=== PATIENT | female | born 1985 | race Caucasian/White ===

== ENCOUNTER 2016-08-14 08:48 | Emergency (ER) | payer OTHER ==
[~2016-08-14] VITALS: Ht 160 cm; Wt 93.5 kg
[2016-08-14 08:50] VITALS: Ht 160 cm; Wt 93.5 kg
[2016-08-14] MEDS ORDERED: IBUP-1542 PO (09:29)
[2016-08-14] MEDS ORDERED: IBUPROFEN 800 MG TAB PO ONE (09:30)
[2016-08-14] MEDS ORDERED: ACET500C5 PO (09:30)
[2016-08-14] MEDS ORDERED: CETI10CA PO (09:31)
--- NOTE | 2016-08-14 09:35 | ERD ---
ER Documentation Chief Complaint Date/Time DATE: 08/14/16 TIME: 09:33 Chief Complaint sore throat x 4 days HPI This is a 31-year-old female who presents the emergency department today for sore throat for the past 4 days. Patient states she has a small cough in her throat hurts when she coughs. She she took Tylenol yesterday. Denies any fevers or chills. Denies any sick contacts. ROS All systems reviewed and are negative except as per history of present illness. Medications Home Meds Active Scripts Cetirizine Hcl* (Zyrtec*) 10 Mg Capsule, 10 MG PO DAILY, #10 TAB.CHEW Prov:GERALD SCHAFER PA-C 08/14/16 Acetaminophen* (Tylophen*) 500 Mg Capsule, 1 CAP PO Q6H Y for PAIN AND OR ELEVATED TEMP, #30 CAP Prov:GERALD SCHAFER PA-C 08/14/16 Ibuprofen* (Motrin*) 600 Mg Tab, 600 MG PO Q6, #30 TAB Prov:GERALD SCHAFER PA-C 08/14/16 Allergies Allergies: Coded Allergies: No Known Allergy (Unverified , 08/14/16) PMhx/Soc Medical and Surgical Hx: pt denies Medical Hx, pt denies Surgical Hx Hx Alcohol Use: No Hx Substance Use: No Hx Tobacco Use: No Smoking Status: Never smoker Physical Exam Vitals Vital Signs Date Time Temp Pulse Resp B/P Pulse Ox O2 Delivery O2 Flow Rate FiO2 08/14/16 08:50 98.4 100 18 127/81 100 Physical Exam Const: No acute distress Head: Atraumatic Eyes: Normal Conjunctiva ENT: Ears TMs normal. Nose no drainage. Throat no erythema no exudate. Mild drainage posterior pharynx. Nontender cervical lymphadenopathy Neck: Full range of motion..~ No meningismus. Resp: Clear to auscultation bilaterally Cardio: Regular rate and rhythm, no murmurs Abd: Soft, non tender, non distended. Normal bowel sounds Skin: No petechiae or rashes Neur: Awake and alert Psych: Normal Mood and Affect Results 24 hrs Current Medications Medications (Trade) Dose Ordered Sig/Austen Route PRN Reason Start Time Stop Time Status Last Admin Dose Admin Ibuprofen (Motrin) 800 mg ONCE ONCE PO 2/16/17 09:30 08/14/16 09:31 DC 08/14/16 09:19 Procedures/MDM This 31-year-old female who presents the emergency department today with a sore throat for the past 4 days. On physical exam patient has no tonsillar exudate. She is afebrile. Her oxygen saturation is 100%. She has a cough. Patient does not meet [facility] criteria to treat for possible or presumed strep pharyngitis at this time. Low suspicion for strep pharyngitis, peritonsillar abscess, retropharyngeal abscess, otitis media, PNA, sinusitis, abscess, meningitis, sepsis, or other acute infectious bacterial process. Vision symptoms at this time consistent with sore throat. She was given Motrin here in the emergency department. We will give her a prescription for Tylenol and Motrin for home as well as Zyrtec to treat possible allergic rhinitis that may be causing some of her sore throat. At this time the patient is stable for discharge and outpatient management. They should follow up with their PCP in the next 1-2. They may return to the emergency department sooner if symptoms persist or worsen. Patient understood and agreed with the plan. Departure Diagnosis: Primary Impression: Sore throat Condition: Fair Patient Instructions: Self-Care for Sore Throats Referrals: your PCP Additional Instructions: Call your primary care doctor TOMORROW for an appointment during the next 1-2 days.See the doctor sooner or return here if your condition worsens before your appointment time. Take Tylenol every 4 hours or Motrin every 6 hours for sore throat or fever Take Zyrtec as prescribed GERALD SCHAFER PA-C Aug 14, 2016 09:35
== END 2016-08-14 09:40 | disposition home or self-care (01) ==
LOC: FTE 08:48
DX: J02.9 Acute pharyngitis, unspecified (principal)
CPT/HCPCS: Z7502; Z7610; 99283

== ENCOUNTER 2017-03-24 00:51 | Emergency (ER) | payer BC ==
[~2017-03-24] VITALS: Ht 160 cm; Wt 90.9 kg
[~2017-03-24 00:51] MED LIST: ACET500C5 PO; CETI10CA PO; IBUP-1542 PO
[2017-03-24 01:23] VITALS: Ht 160 cm; Wt 90.9 kg
[2017-03-24] MEDS ORDERED: SOD CHLORIDE 0.9% 1,000 ML IV STA (05:30)
[2017-03-24] MEDS ORDERED: ONDANSETRON 4 MG INJ IV STA (05:30)
[2017-03-24] MEDS ORDERED: morphine 4 MG/ML VIAL IV STA (05:30)
[2017-03-24 06:18] LABS: BASOPHILS % 0.2 % (0.0-2.0); HEMATOCRIT 32.4 % (37.0-47.0); HEMOGLOBIN 10.6 g/dl (12.0-16.0); LYMPHOCYTES % 5.7 % (15.0-51.0); MEAN CORPUSCULAR HEMOGLOBIN 28.3 pg (29.0-33.0); MEAN CORPUSCULAR HGB CONC 32.7 g/dl (32.0-37.0); MEAN CORPUSCULAR VOLUME 86.4 fl (82.0-101.0); MEAN PLATELET VOLUME 11.3 fl (7.4-10.4); MONOCYTE # 1.3 10^3/ul (0.3-0.9); MONOCYTES % 7.4 % (0.0-11.0); NEUTROPHIL # 14.7 10^3/ul (1.6-7.5); NEUTROPHILS % 86.2 % (39.0-77.0); PLATELET COUNT 266 10^3/UL (140-415); RED BLOOD COUNT 3.75 10^6/ul (4.20-5.40); RED CELL DISTRIBUTION WIDTH 15.8 % (11.5-14.5)
[2017-03-24 06:35] LABS: ALBUMIN 3.7 g/dl (3.3-4.9); ALBUMIN/GLOBULIN RATIO 0.97; BILIRUBIN,INDIRECT 0.6 mg/dl (0-1.1); BILIRUBIN,TOTAL 0.6 mg/dl (0.2-1.3); CALCIUM 9.1 mg/dl (8.4-10.2); CREATININE 0.6 mg/dl (0.44-1.00); POTASSIUM 3.6 mmol/L (3.5-5.1); TOTAL PROTEIN 7.5 g/dl (6.1-8.1)
[2017-03-24] MEDS ORDERED: ACETAMINOPHEN 500 MG TAB PO STA (06:36)
[2017-03-24] MEDS: SOD CHLORIDE 0.9% 1,000 ML IV STA ×2 (06:39→07:15)
--- NOTE | 2017-03-24 07:26 | ERD ---
ER Documentation Chief Complaint Date/Time DATE: 03/24/17 TIME: 07:22 Chief Complaint FEVER, VOMITING AND LEFT FLANK PAIN THIS YESTERDAY IN AM HPI This is a 31-year-old female that presents to the emergency department complaining of left flank pain as been present for the past 24 hours. She indicates that has progressively worsened since that time. The pain is now 5 out of 10 in intensity when it began it was 2 out of 10 in intensity. The patient stated she had a tactile fever with shaking and chills throughout the evening. She is complaining of mild frequency urgency but no dysuria. The patient indicates she took a home test and it was positive. Her last menstrual period was November 20, 2016, 3 months prior to arrival. The patient did take acetaminophen at 5 PM, 12 hours prior to arrival. She denies any vaginal bleeding. The patient has been 3 times in the past with no complications. She has had 2 previous sections. She has felt nauseous this morning and had one episode of nonbloody nonbilious emesis. She denies a headache or changes in vision. She has no shortness of breath at rest or exertion. She denies any recent travel. She has not received any care. ROS All systems reviewed and are negative except as per history of present illness. Medications Home Meds Active Scripts Acetaminophen* (Tylophen*) 500 Mg Capsule, 1 CAP PO Q6H Y for PAIN AND OR ELEVATED TEMP, #30 CAP Prov:GERALD SCHAFER PA-C 08/14/16 Discontinued Scripts Cetirizine Hcl* (Zyrtec*) 10 Mg Capsule, 10 MG PO DAILY, #10 TAB.CHEW Prov:GERALD SCHAFER PA-C 08/14/16 Ibuprofen* (Motrin*) 600 Mg Tab, 600 MG PO Q6, #30 TAB Prov:GERALD SCHFAER PA-C 08/14/16 Allergies Allergies: Coded Allergies: No Known Allergy (Unverified , 03/24/17) PMhx/Soc Medical and Surgical Hx: pt denies Medical Hx, pt denies Surgical Hx Hx Alcohol Use: No Hx Substance Use: No Hx Tobacco Use: No Physical Exam Vitals Vital Signs Date Time Temp Pulse Resp B/P Pulse Ox O2 Delivery O2 Flow Rate FiO2 03/24/17 06:17 98.4 78 15 117/69 100 Room Air 03/24/17 01:23 100.1 126 18 117/69 99 Physical Exam Constitutional:Well-developed. Well-nourished. HEENT:Normocephalic. Atraumatic.Pupils were equal round reactive to light. Dry mucous membranes.No tonsillar exudates. Neck: No nuchal rigidity. No lymphadenopathy. No posterior cervical spine tenderness or step-offs. Respiratory: Not using accessory muscles of respiration.Lungs were clear to auscultation bilaterally. No rhonchi. No rales. No wheezing. Cardiovascular: Regular rate regular rhythm.No murmurs. No rubs were appreciated.S1, S2 normal. Distal pulses are palpable 2+ bilaterally. GI: Abdomen was soft. Gravid uterus nontender. Non Distended. No pulsatile abdominal masses or bruits. No rebound. No guarding. Bowel sounds were present and normal. Mild tenderness in the left lower quadrant. CVA tenderness. : Pelvic exam deferred by patient Muscle skeletal: Full range of motion of both the upper and lower extremities bilaterally.Normal muscle tone.No assymetrical calf tenderness or swelling. Skin: No petechia, no purpura. No lesions on the palms or the soles of the feet. No maculopapular rash. NEURO: Patient was alert, awake, orientated x3.No facial droop. Gait observed and normal with no ataxia.Speech had regular rate and rhythm. No focal neurological deficits. Result Diagram: 03/24/17 0540 03/24/17 0540 Results 24 hrs Laboratory Tests Test 03/24/17 05:40 03/24/17 07:11 White Blood Count 17.010^3/ul Red Blood Count 3.7510^6/ul Hemoglobin 10.6g/dl Hematocrit 32.4% Mean Corpuscular Volume 86.4fl Mean Corpuscular Hemoglobin 28.3pg Mean Corpuscular Hemoglobin Concent 32.7g/dl Red Cell Distribution Width 15.8% Platelet Count 49939^3/UL Mean Platelet Volume 11.3fl Neutrophils % 86.2% Lymphocytes % 5.7% Monocytes % 7.4% Eosinophils % 0.0% Basophils % 0.2% Nucleated Red Blood Cells % 0.0/100WBC Neutrophils # 14.710^3/ul Lymphocytes # 1.010^3/ul Monocytes # 1.310^3/ul Eosinophils # 0.010^3/ul Basophils # 0.010^3/ul Nucleated Red Blood Cells # 0.010^3/ul Sodium Level 138mmol/L Potassium Level 3.6mmol/L Chloride Level 105mmol/L Carbon Dioxide Level 22mmol/L Anion Gap 15 Blood Urea Nitrogen 6mg/dl Creatinine 0.60mg/dl Glucose Level 121mg/dl Calcium Level 9.1mg/dl Total Bilirubin 0.6mg/dl Direct Bilirubin 0.00mg/dl Indirect Bilirubin 0.6mg/dl Aspartate Amino Transf (AST/SGOT) 18IU/L Alanine Aminotransferase (ALT/SGPT) 32IU/L Alkaline Phosphatase 120IU/L Total Protein 7.5g/dl Albumin 3.7g/dl Globulin 3.80g/dl Albumin/Globulin Ratio 0.97 Lipase 28U/L Urine Color YELLOW Urine Clarity CLOUDY Urine pH 6.0 Urine Specific [place] 1.015 Urine Ketones 2+mg/dL Urine Nitrite NEGATIVEmg/dL Urine Bilirubin NEGATIVEmg/dL Urine Urobilinogen 1+mg/dL Urine Leukocyte Esterase 3+Chela/ul Urine Microscopic RBC 4/HPF Urine Microscopic WBC > 182/HPF Urine Squamous Epithelial Cells FEW/HPF Urine Amorphous Crystals FEW/HPF Urine Bacteria FEW/HPF Urine Mucus MANY/HPF Urine Hemoglobin 1+mg/dL Urine Glucose NEGATIVEmg/dL Urine Total Protein 1+mg/dl Current Medications Medications (Trade) Dose Ordered Sig/Austen Route PRN Reason Start Time Stop Time Status Last Admin Dose Admin Sodium Chloride (NS) 1,000 ml @ 1,000 mls/hr Q1H STAT IV 03/24/17 05:30 03/24/17 06:29 DC 03/24/17 05:54 Morphine Sulfate (morphine) 4 mg ONCE STAT IV 03/24/17 05:30 03/24/17 05:31 DC 03/24/17 05:58 Ondansetron HCl 4 mg 4 mg ONCE STAT IV 03/24/17 05:30 03/24/17 05:31 DC 03/24/17 05:58 Sodium Chloride (NS) 1,000 ml @ 1,000 mls/hr Q1H STAT IV 03/24/17 06:35 03/24/17 07:34 DC 03/24/17 07:15 Acetaminophen (Tylenol Tab) 1,000 mg ONCE STAT PO 03/24/17 06:36 03/24/17 06:54 DC 03/24/17 07:15 Procedures/MDM This patient presented to the emergency department with first trimester and febrile. The patient had leukocytosis. She was able to tolerate oral intake. IV access was established by nursing staff and the patient received IV fluids and Zofran. The patient was complaining of pain in the left lower quadrant. Indicated that the patient was unable to take ibuprofen or NSAIDs due to her but the patient was requiring analgesic medication. She was given acetaminophen which improved the fever but stated this did not improve her pelvic pain. The patient was educated on the adverse effects of taking opiates in her first trimester however she did agree to taking the medications despite the adverse effects and therefore was given IV morphine with improvement of her pain. Transvaginal ultrasound indicated there is no evidence of ectopic and patient had a single viable intrauterine gestation of approximately 18 weeks and 2 days based on ultrasound measurements Departure Diagnosis: Primary Impression: Fever Fever type: unspecified Qualified Code: R50.9 - Fever, unspecified fever cause Additional Impression: Pyelonephritis affecting in first trimester Condition: MICHELLE Crisostomo Mar 24, 2017 07:26
[2017-03-24 07:32] LABS: ADD UMIC YES; UR AMORPHOUS CRYSTAL FEW /HPF (NONE SEEN); UR ASCORBIC ACID NEGATIVE (NEGATIVE); UR BACTERIA FEW /HPF (NONE SEEN); UR BILIRUBIN (Dip) NEGATIVE (NEGATIVE); UR BLOOD (Dip) 1+ mg/dL (NEGATIVE); UR CLARITY CLOUDY (CLEAR); UR COLOR YELLOW (YELLOW); UR GLUCOSE (Dip) NEGATIVE (NEGATIVE); UR KETONES (Dip) 2+ mg/dL (NEGATIVE); UR LEUKOCYTE ESTERASE (Dip) 3+ Leu/ul (NEGATIVE); UR MUCUS MANY /HPF (NONE SEEN); UR NITRITE (Dip) NEGATIVE (NEGATIVE); UR RBC 4 /HPF (0-5); UR SPECIFIC GRAVITY (Dip) 1.015 (1.003-1.030); UR SQUAMOUS EPITHELIAL CELL FEW /HPF (FEW); UR TOTAL PROTEIN (Dip) 1+ mg/dl (NEGATIVE); UR UROBILINOGEN (Dip) 1+ mg/dL (NEGATIVE)
--- NOTE | 2017-03-24 07:32 | RADRPT ---
PROCEDURE: US OB. CLINICAL INDICATION: Size and dates , pain TECHNIQUE: Multiple sonographic images of the pelvis and gravid uterus were obtained. The images were reviewed on a PACS workstation. COMPARISON: No prior studies are available for comparison. FINDINGS: There is a single viable intrauterine gestation. Cardiac activity is present with 154 beats per min alutiiq. There is a vertex presentation. The placenta is anterior. There is no evidence for an abruption or placenta previa. MVP = 4.5 cm. Measurements were made in order to determine age. The results are as follows: BPD =4.1 cm HC =15.7 cm AC =13.7 cm FL =2.3 cm Estimated gestational age of approximately 18 weeks and 2 days based on ultrasound measurements. Clinical age: 17 weeks and 0 days. The estimated date of delivery is 08/23/2017, based on ultrasound measurements. The EFW = 227 g, >97%, based on LMP age. The ovaries are not seen. No adnexal masses are seen. RPTAT: AA IMPRESSION: Single viable intrauterine gestation of approximately 18 weeks and 2 days based on ultrasound measu rements. .Manpreet Alarcon MD, Date Time Electronically viewed and signed by .Manpreet Alarcon MD, MD on 03/24/2017 07:32 .S/
[2017-03-24] MEDS ORDERED: CEPH-443 PO (07:46)
[2017-03-24] MEDS ORDERED: ACET500C5 PO (07:46)
[2017-03-24] MEDS ORDERED: CEFAZOLIN 1 GM/50 ML (PMX) 50 ML IVPB SCH (08:00)
[2017-03-24 10:08] VITALS: BP 122/72; PULSE 72; RESP 15; TEMP 99.2
== END 2017-03-24 10:09 | disposition home or self-care (01) ==
LOC: E/R 00:51
DX: O26.892 Other specified pregnancy related conditions, second trimester (principal); O23.02 Infections of kidney in pregnancy, second trimester; Z3A.18 18 weeks gestation of pregnancy
CPT/HCPCS: 36415; 76805; 80053; 81001; 83690; 84702; 85025; 86850; 86900; 86901; 87040; 87086; 96374; 96375; 99285; J0690; J2270; J2405; J7030; Z7610

== ENCOUNTER 2017-03-26 09:39 | Emergency (ER) | payer BC ==
[~2017-03-26] VITALS: Ht 160 cm; Wt 88.0 kg
[~2017-03-26 09:39] MED LIST changes: +CEPH-443 PO; -CETI10CA PO; -IBUP-1542 PO
[2017-03-26 09:43] VITALS: Ht 160 cm; Wt 88.0 kg
[2017-03-26] MEDS ORDERED: SOD CHLORIDE 0.9% 500 ML IV STA (11:08)
[2017-03-26 11:56] LABS: ABNORMAL IP MESSAGE 1; BASOPHILS % 0.2 % (0.0-2.0); HEMATOCRIT 31.7 % (37.0-47.0); HEMOGLOBIN 10.1 g/dl (12.0-16.0); LYMPHOCYTES # 0.3 10^3/ul (0.8-2.9); LYMPHOCYTES % 5.1 % (15.0-51.0); MEAN CORPUSCULAR HEMOGLOBIN 27.6 pg (29.0-33.0); MEAN CORPUSCULAR HGB CONC 31.9 g/dl (32.0-37.0); MEAN CORPUSCULAR VOLUME 86.6 fl (82.0-101.0); MEAN PLATELET VOLUME 11.2 fl (7.4-10.4); MONOCYTE # 0.3 10^3/ul (0.3-0.9); MONOCYTES % 4.6 % (0.0-11.0); NEUTROPHIL # 5.3 10^3/ul (1.6-7.5); NEUTROPHILS % 89.4 % (39.0-77.0); PLATELET COUNT 201 10^3/UL (140-415); RED BLOOD COUNT 3.66 10^6/ul (4.20-5.40); RED CELL DISTRIBUTION WIDTH 16.4 % (11.5-14.5); WHITE BLOOD COUNT 5.9 10^3/ul (4.8-10.8)
[2017-03-26 11:58] LABS: ALBUMIN 3.4 g/dl (3.3-4.9); ALBUMIN/GLOBULIN RATIO 0.8; BILIRUBIN,INDIRECT 0.9 mg/dl (0-1.1); BILIRUBIN,TOTAL 0.9 mg/dl (0.2-1.3); CREATININE 0.62 mg/dl (0.44-1.00); POSITIVE DIFF @See below; TOTAL PROTEIN 7.6 g/dl (6.1-8.1)
[2017-03-26 12:00] LABS: ADD UMIC YES; UR ASCORBIC ACID NEGATIVE (NEGATIVE); UR BACTERIA FEW /HPF (NONE SEEN); UR BILIRUBIN (Dip) 2+ mg/dL (NEGATIVE); UR BLOOD (Dip) 1+ mg/dL (NEGATIVE); UR CLARITY SLIGHTLY CLOUDY (CLEAR); UR COLOR AMBER (YELLOW); UR GLUCOSE (Dip) NEGATIVE (NEGATIVE); UR KETONES (Dip) NEGATIVE (NEGATIVE); UR LEUKOCYTE ESTERASE (Dip) 1+ Leu/ul (NEGATIVE); UR MUCUS FEW /HPF (NONE SEEN); UR NITRITE (Dip) NEGATIVE (NEGATIVE); UR RBC 19 /HPF (0-5); UR SPECIFIC GRAVITY (Dip) 1.021 (1.003-1.030); UR SQUAMOUS EPITHELIAL CELL FEW /HPF (FEW); UR TOTAL PROTEIN (Dip) 2+ mg/dl (NEGATIVE); UR UROBILINOGEN (Dip) 2+ mg/dL (NEGATIVE)
--- NOTE | 2017-03-26 12:27 | RADRPT ---
PROCEDURE: Real Time Sonogram. 03/26/201712:02 PM CLINICAL INDICATION: 31-year-old female with abdominal pain and 18-week . TECHNIQUE: This procedure was performed on a high-resolution real time Unit using a endovaginal pr obe. COMPARISON: OB sonogram 03/24/2017. FINDINGS: The uterus measures 10.6 cm sagittal by 6.2 cm AP by 9.6 cm transverse. Presentation: Cephalic. Cervical Length:Placental Location: Anterior, grade 1.Placental Previa: No. Body limb and cardiac motion: Yes.Heart rate: 182 beats per minute. Amniotic fluid volume:Normal. Measured data: BPD:4.48 cm19 weeks 4 days. HC:16.77 cm19 weeks 3 days. AC:13.5619 weeks 0 days. FC:2.62 cm18 weeks area days. AUA:19 weeks are not asplus or minus 1 week 2 days. LIANG (AUA):08/20/2017. Serial scan estimated menstrual age: Not calculated. weight: 246 g plus or minus 37 g. Endovaginal imaging utilized:Yes Additional findings: MVP: 4.9 cm. No abnormal pelvic/adnexal mass or free fluid is noted in the p charlie. IMPRESSION: See above RPTAT:AAJJ Physician Kaylee Date Time Electronically viewed and signed by Physician Kaylee on 03/26/2017 12:27 /
[2017-03-26] MEDS ORDERED: CEFTRIAXONE 1 GM/50 ML (PMX) 50 ML IVPB ONE (12:30)
[2017-03-26] MEDS ORDERED: NITR-58 PO (13:12)
[2017-03-26] MEDS ORDERED: TYL500 PO (13:14)
[2017-03-26] MEDS ORDERED: ONDA4TAB11 PO (13:14)
--- NOTE | 2017-03-26 13:36 | ERD ---
ER Documentation Chief Complaint Date/Time DATE: 03/26/17 TIME: 13:25 Chief Complaint abdominal pain x4 days HPI 31-year-old female comes in for same pain that she had when she presented 2 days ago to the emergency room. The pain is in the lower abdomen as well as some left flank pain. She has no nausea currently no vomiting. She is able to take p.o. She was diagnosed with urinary tract infection 2 days ago and has been taking antibiotics for day and a half. She is 18 weeks and only has Tylenol for pain. At her EMR and she was prescribed Keflex. ROS All systems reviewed and are negative except as per history of present illness. Medications Home Meds Active Scripts Ondansetron (Zofran Odt) 4 Mg Tab.rapdis, 4 MG PO Q6, #10 Prov:YANI LAFLEUR DO 03/26/17 Acetaminophen* (Tylenol*) 500 Mg Tab, 500 MG PO Q6H Y for PAIN, #20 TAB Prov:YANI LAFLEUR DO 03/26/17 Nitrofurantoin Monohyd Macrocr* (Macrobid*) 100 Mg Capsr, 100 MG PO BID for 7 Days, CAP Prov:YANI LAFLEUR DO 03/26/17 Acetaminophen* (Tylophen*) 500 Mg Capsule, 2 CAP PO Q8H Y for PAIN AND OR ELEVATED TEMP, #20 CAP Prov:MOHAMUD GREERA 03/24/17 Cephalexin* (Keflex*) 500 Mg Capsule, 500 MG PO QID for 10 Days, CAP Prov:MICHELLE GREER 03/24/17 Acetaminophen* (Tylophen*) 500 Mg Capsule, 1 CAP PO Q6H Y for PAIN AND OR ELEVATED TEMP, #30 CAP Prov:GERALD SCHAFER PA-C 08/14/16 Discontinued Scripts Cetirizine Hcl* (Zyrtec*) 10 Mg Capsule, 10 MG PO DAILY, #10 TAB.CHEW Prov:GERALD SCHAFER PA-C 08/14/16 Ibuprofen* (Motrin*) 600 Mg Tab, 600 MG PO Q6, #30 TAB Prov:GERALD SCHAFER-C 08/14/16 Allergies Allergies: Coded Allergies: No Known Allergy (Unverified , 03/24/17) PMhx/Soc Medical and Surgical Hx: pt denies Medical Hx, pt denies Surgical Hx Hx Alcohol Use: No Hx Substance Use: No Hx Tobacco Use: No Physical Exam Vitals Vital Signs Date Time Temp Pulse Resp B/P Pulse Ox O2 Delivery O2 Flow Rate FiO2 03/26/17 09:43 99.9 122 18 142/76 97 Physical Exam Const: [] No distress, calm, pleasant. Head: Atraumatic Eyes: Normal Conjunctiva ENT: Normal External Ears, Nose and Mouth. Abd: Soft, will to elicit any specific tenderness, non distended. Normal bowel sounds Skin: No petechiae or rashes Back: No midline or flank tenderness Ext: No cyanosis, or edema Result Diagram: 03/26/17 1120 03/26/17 1120 Results 24 hrs Laboratory Tests Test 03/26/17 11:20 White Blood Count 5.910^3/ul Red Blood Count 3.6610^6/ul Hemoglobin 10.1g/dl Hematocrit 31.7% Mean Corpuscular Volume 86.6fl Mean Corpuscular Hemoglobin 27.6pg Mean Corpuscular Hemoglobin Concent 31.9g/dl Red Cell Distribution Width 16.4% Platelet Count 31834^3/UL Mean Platelet Volume 11.2fl Neutrophils % 89.4% Lymphocytes % 5.1% Monocytes % 4.6% Eosinophils % 0.0% Basophils % 0.2% Nucleated Red Blood Cells % 0.0/100WBC Neutrophils # 5.310^3/ul Lymphocytes # 0.310^3/ul Monocytes # 0.310^3/ul Eosinophils # 0.010^3/ul Basophils # 0.010^3/ul Nucleated Red Blood Cells # 0.010^3/ul Urine Color CAROLE Urine Clarity SLIGHTLY CLOUDY Urine pH 5.0 Urine Specific [place] 1.021 Urine Ketones NEGATIVEmg/dL Urine Nitrite NEGATIVEmg/dL Urine Bilirubin 2+mg/dL Urine Urobilinogen 2+mg/dL Urine Leukocyte Esterase 1+Chela/ul Urine Microscopic RBC 19/HPF Urine Microscopic WBC 28/HPF Urine Squamous Epithelial Cells FEW/HPF Urine Bacteria FEW/HPF Urine Mucus FEW/HPF Urine Hemoglobin 1+mg/dL Urine Glucose NEGATIVEmg/dL Urine Total Protein 2+mg/dl Sodium Level 132mmol/L Potassium Level 3.0mmol/L Chloride Level 101mmol/L Carbon Dioxide Level 25mmol/L Anion Gap 9 Blood Urea Nitrogen 5mg/dl Creatinine 0.62mg/dl Glucose Level 126mg/dl Calcium Level 9.0mg/dl Total Bilirubin 0.9mg/dl Direct Bilirubin 0.00mg/dl Indirect Bilirubin 0.9mg/dl Aspartate Amino Transf (AST/SGOT) 33IU/L Alanine Aminotransferase (ALT/SGPT) 45IU/L Alkaline Phosphatase 128IU/L Total Protein 7.6g/dl Albumin 3.4g/dl Globulin 4.20g/dl Albumin/Globulin Ratio 0.80 Current Medications Medications (Trade) Dose Ordered Sig/[place] Route PRN Reason Start Time Stop Time Status Last Admin Dose Admin Sodium Chloride 500 ml @ 500 mls/hr Q1H STAT IV 03/26/17 11:08 03/26/17 12:07 DC 03/26/17 11:54 Ceftriaxone Sodium (Rocephin) 50 ml @ 100 mls/hr ONCE ONCE IVPB 03/26/17 12:30 03/26/17 12:59 DC 03/26/17 12:29 Procedures/MDM female with hilar nephritis. She has stable vital signs in 1 day and a half of antibiotics is sufficient to say that she failed outpatient treatment. Unfortunately she is unable to take Tylenol for pain currently because if she is . I reviewed her culture results and see the Keflex is an excellent antibiotic for both bacteria found in her urine. Duration of treatment was probably too short. I did give her a gram of Rocephin in order to hasten the treatment of the infection. Muscular prescribe her Macrobid which the bacteria is also sensitive to. She was given a liter of normal saline in the emergency room. She has mild decreased potassium. I am going to discharge her with Macrobid, Zofran, Tylenol. Told to return the emergency room on Thursday if the infection is not resolved. No signs of any distress on ultrasound. No signs of sepsis. Obstetric ultrasound patient: Intrauterine . With 182 heart rate and positive movement of limbs. Departure Diagnosis: Primary Impression: Pyelonephritis Additional Impression: Abdominal pain during in second trimester Condition: Stable Patient Instructions: Understanding Urinary Tract Infections (UTIs) Additional Instructions: Call your primary care doctor TOMORROW for an appointment during the next 2-3 days.See the doctor sooner or return here if your condition worsens before your appointment time. YANI LAFLEUR DO Mar 26, 2017 13:35
== END 2017-03-26 13:47 | disposition home or self-care (01) ==
LOC: FTE 09:39
DX: O23.02 Infections of kidney in pregnancy, second trimester (principal); R10.9 Unspecified abdominal pain; Z3A.18 18 weeks gestation of pregnancy
CPT/HCPCS: 36415; 76805; 80053; 81001; 85025; 96374; 99285; J0696; J7040